=== PATIENT | female | born 1945 | race Caucasian/White ===

== ENCOUNTER → 2016-07-30 | Outpatient (CLI) | payer MEDICARE ==
--- NOTE | 2016-07-31 10:31 | MM ---
Reason for exam: screening (asymptomatic). Last mammogram was performed 1 year and 2 months ago. History: Patient is postmenopausal and has history of endometrial cancer at age 48. Benign stereotactic core biopsy of the right breast, October 23, 1999. Took estrogen. Took progesterone. Physical Findings: A clinical breast exam by your physician is recommended on an annual basis and results should be correlated with mammographic findings. MG Screening Mammo w CAD Bilateral CC and MLO view(s) were taken. Prior study comparison: May 31, 2015, bilateral MG screening mammo w CAD. April 25, 2014, bilateral MG screening mammo w CAD. The breast tissue is almost entirely fat. Previous mammotome biopsy in the right breast. Asymmetric breast tissue in the left breast. This finding is more defined when compared with previous exams. ASSESSMENT: Incomplete: need additional imaging evaluation, BI-RAD 0 RECOMMENDATION: Special view mammogram of the left breast. If lesion persists on supplemental views, image directed ultrasound is recommended. [facility] will attempt to contact patient to return for supplemental views and ultrasound if indicated.
== END | disposition home or self-care (01) ==
LOC: RADMAMWWP 10:05
PROVIDERS: ATTEND Family Medicine
DX: Z12.31 Encounter for screening mammogram for malignant neoplasm of breast (principal)

== ENCOUNTER → 2016-08-04 | Outpatient (CLI) | payer MEDICARE ==
--- NOTE | 2016-08-05 07:08 | MM ---
Reason for exam: additional evaluation requested from abnormal screening. Last mammogram was performed less than 1 month ago. History: Patient is postmenopausal and has history of endometrial cancer at age 48. Benign stereotactic core biopsy of the right breast, October 23, 1999. Took estrogen. Took progesterone. Physical Findings: Nurse did not find any significant physical abnormalities on exam. MG 3D Work Up W/Cad LT ML, spot compression MLO, and spot compression CC view(s) were taken of the left breast. Prior study comparison: July 30, 2016, bilateral MG screening mammo w CAD. May 31, 2015, bilateral MG screening mammo w CAD. April 25, 2014, bilateral MG screening mammo w CAD. November 17, 2011, bilateral digital screening mammo w/CAD. There are scattered fibroglandular densities. Subareolar density shows no underlying mass or architectural distortion. Appearance on tomosynthesis is stable from priors. These results were verbally communicated with the patient and result sheet given to the patient on 08/04/16. ASSESSMENT: Negative, BI-RAD 1 RECOMMENDATION: Return to routine screening mammogram schedule for both breasts.
== END | disposition home or self-care (01) ==
LOC: RADMAMWWP 14:52
PROVIDERS: ATTEND Family Medicine
DX: R92.8 Other abnormal and inconclusive findings on diagnostic imaging of breast (principal)
CPT/HCPCS: G0206; G0279

== ENCOUNTER → 2017-09-14 | Outpatient (CLI) | payer MEDICARE ==
--- NOTE | 2017-09-14 15:25 | BD ---
EXAMINATION TYPE: MG DEXA axial skeleton. DATE OF EXAM: 09/14/2017 COMPARISON: DEXA bone scan April 17, 2015 CLINICAL HISTORY: post menopausal Height: 09/14 05/18 Weight: 137 FRAX RISK QUESTIONS: Alcohol (3 or more units per day): y Family History (Parent hip fracture): y Glucocorticoids (More than 3mos): y (Ex: prednisone, prednisolone, methylprednisolone, dexamethasone, and hydrocortisone). History of Fracture in Adulthood: y Secondary Osteoporosis: 1. Type 1 Diabetes: n 2. Hyperthyroidism: n 3. Menopause before 45: n 4. Malnutrition: n 5. Chronic liver disease: n Rheumatoid Arthritis: n Current Tobacco Use: n RISK FACTORS HISTORY OF: Diet low in dairy products/other sources of calcium: y Postmenopausal woman: y MEDICATIONS: Additional Medications: vitamin D. Stomach issues Additional History: uterine cancer EXAM MEASUREMENTS: Bone mineral densitometry was performed using the [employer]. Bone mineral density as measured about the Lumbar spine is: ----- L1-L4(G/cm2): 1.099 T Score Values are as follows: ----- L2: -1.2 ----- L3: 0.0 ----- L4: 0.6 ----- L1-L4: -0.7 Bone mineral density has: Increased 0.6since study of: 04/17/2015 Bone mineral density about the R hip (g/cm2): 0.768 Bone mineral density about the L hip (g/cm2): 0.692 T Score values are as follows: -----R Neck: -1.9 -----L Neck: -2.5 -----R Total: -1.7 -----L Total: -1.6 Bone mineral density has: Decreased -2.6 since of: 04/17/2015 IMPRESSION: Osteopenia (T Score between -2.5 and -1) persists in both hips. There remains slightly increased risk of fracture and the patient may be considered for treatment. Re-Screen 2-5 years. NOTE: T-SCORE=SD OF THE YOUNG ADULT MEAN.
--- NOTE | 2017-09-15 10:34 | MM ---
Reason for exam: screening (asymptomatic). Last mammogram was performed 1 year and 1 month ago. History: Patient is postmenopausal and has history of endometrial cancer at age 48. Benign stereotactic core biopsy of the right breast, October 23, 1999. Took estrogen. Took progesterone. Physical Findings: A clinical breast exam by your physician is recommended on an annual basis and results should be correlated with mammographic findings. MG Screening Mammo w CAD Bilateral CC and MLO view(s) were taken. Prior study comparison: August 04, 2016, left breast MG 3d work up w/cad LT. July 30, 2016, bilateral MG screening mammo w CAD. There are scattered fibroglandular densities. Stable benign calcifications in the right breast. Previous mammotome biopsy in the right breast. Focal asymmetry upper outer left breast stable since 2016. No significant changes when compared with prior studies. ASSESSMENT: Benign, BI-RAD 2 RECOMMENDATION: Routine screening mammogram of both breasts in 1 year.
== END | disposition home or self-care (01) ==
LOC: RADMAMWWP 13:52
PROVIDERS: ATTEND Family Medicine
DX: Z12.31 Encounter for screening mammogram for malignant neoplasm of breast (principal); M85.852 Other specified disorders of bone density and structure, left thigh; M85.851 Other specified disorders of bone density and structure, right thigh; Z78.0 Asymptomatic menopausal state
CPT/HCPCS: 77067; 77080

== ENCOUNTER → 2018-11-30 | Outpatient (CLI) | payer MEDICARE ==
--- NOTE | 2018-12-01 11:27 | MM ---
Reason for exam: screening (asymptomatic). Last mammogram was performed 1 year and 3 months ago. History: Patient is postmenopausal and has history of endometrial cancer at age 48. Benign stereotactic core biopsy of the right breast, October 23, 1999. Took estrogen. Took progesterone. Physical Findings: A clinical breast exam by your physician is recommended on an annual basis and results should be correlated with mammographic findings. MG Screening Mammo w CAD Bilateral CC and MLO view(s) were taken. Prior study comparison: September 14, 2017, bilateral MG screening mammo w CAD. August 04, 2016, left breast MG 3d work up w/cad LT. The breast tissue is heterogeneously dense. This may lower the sensitivity of mammography. There are benign appearing round calcifications bilaterally. Previous mammotome biopsy in the right breast. There is no discrete abnormality. ASSESSMENT: Benign, BI-RAD 2 RECOMMENDATION: Routine screening mammogram of both breasts in 1 year.
== END | disposition home or self-care (01) ==
LOC: RADMAMWWP 11:01
PROVIDERS: ATTEND Family Medicine
DX: Z12.31 Encounter for screening mammogram for malignant neoplasm of breast (principal)
CPT/HCPCS: 77067

== ENCOUNTER → 2020-04-16 | Outpatient (CLI) | payer MEDICARE ==
--- NOTE | 2020-04-16 14:55 | BD ---
EXAMINATION TYPE: Axial Bone Density DATE OF EXAM: 04/16/2020 COMPARISON: 09.14.2017 CLINICAL HISTORY: 74 YR OLD FEMALE.....ICD-10 CODE: Z78.0 POST ASHWIN Height: 60.9 Weight: 125 FRAX RISK QUESTIONS: History of Fracture in Adulthood: YES Current Tobacco Use: YES RISK FACTORS HISTORY OF: HX OF TAILBONE FX AN ADULT Postmenopausal woman: YES, AT AGE 47 Take estrogen and/or progesterone medications: YES, FOR ABOUT 10 YRS IN THE PAST Hyperparathyroidism: NO Adrenal Insufficiency: NO MEDICATIONS: Additional Medications: LEXAPRO AND ATIVAN, CHOLESTEROL MEDS PRESCRIBED, VIT D3, VIT D2 IN THE PAST I NFUSION Additional History: ANXIETY, CHOLESTEROL EXAM MEASUREMENTS: Bone mineral densitometry was performed using the [employer] System. Bone mineral density as measured about the Lumbar spine is: ----- L1-L4(G/cm2): 1.195 T Score Values are as follows: ----- L1: -2.2 ----- L2: -0.6 ----- L3: 0.8 ----- L4: 3.1 ----- L1-L4: 0.1 Bone mineral density has: Increased 11.8% since study of: 09.14.2017 Bone mineral density about the R hip (g/cm2): 0.776 Bone mineral density about the L hip (g/cm2): 0.760 T Score values are as follows: -----R Neck: -2.0 -----L Neck: -2.7 -----R Total: -1.8 -----L Total: -2.0 Bone mineral density has: Decreased -4.0% since study of: 09.14.2017 FRAX%S: THERE IS 29.3% CHANCE FOR A MAJOR OSTEOPOROTIC FX AND A 14.2% FOR HIP.....PROBABILITY FOR F X IN 10 YRS TIME IMPRESSION: Osteopenia (T Score between -2.5 and -1). There is slightly increased risk of fracture and the patient may be considered for treatment. Re-Screen 2-5 years. NOTE: T-SCORE=SD OF THE YOUNG ADULT MEAN.
--- NOTE | 2020-04-17 13:38 | MM ---
Reason for exam: screening (asymptomatic). Last mammogram was performed 1 year and 4 months ago. History: Patient is postmenopausal and has history of endometrial cancer at age 48. Benign stereotactic core biopsy of the right breast, October 23, 1999. Took estrogen. Took progesterone. Physical Findings: A clinical breast exam by your physician is recommended on an annual basis and results should be correlated with mammographic findings. MG 3D Screening Mammo W/Cad Bilateral CC and MLO view(s) were taken. Prior study comparison: November 30, 2018, bilateral MG screening mammo w CAD. September 14, 2017, bilateral MG screening mammo w CAD. There are scattered fibroglandular densities. Previous mammotome biopsy in the right breast. Stable areas of asymmetric densities. No significant changes when compared with prior studies. ASSESSMENT: Negative, BI-RAD 1 RECOMMENDATION: Routine screening mammogram of both breasts in 1 year.
== END | disposition home or self-care (01) ==
LOC: RADMAMWWP 13:42
PROVIDERS: ATTEND Family Medicine
DX: Z12.31 Encounter for screening mammogram for malignant neoplasm of breast (principal); M85.80 Other specified disorders of bone density and structure, unspecified site; Z78.0 Asymptomatic menopausal state
CPT/HCPCS: 77063; 77067; 77080

== ENCOUNTER → 2020-04-22 | Outpatient (CLI) | payer MEDICARE ==
[2020-04-22 13:12] LABS: African American GFR (CKD) >90 (>60 ml/min/1.73 sqM); Blood Urea Nitrogen 9 mg/dL (7-17); Non-African American GFR(CKD) >90 (>60 ml/min/1.73 sqM)
--- NOTE | 2020-04-22 14:47 | CT ---
EXAMINATION TYPE: CT angio neck DATE OF EXAM: 04/22/2020 COMPARISON: Correlation CT neck 02/28/2010 HISTORY: 74-year-old female I67.89, Cerebral vascular disease TECHNIQUE: Contiguous axial scanning of the neck performed with IV Contrast, patient injected with 65 mL of Isovue 370. Coronal/sagittal MIP reconstructions performed. 3-D reconstructions generated on a dedicated independent workstation. CT DLP: 286 mGycm Automated exposure control for dose reduction was used. FINDINGS: Moderate centrilobular emphysema in the visualized upper lungs. Very bulky and heterogeneous thyroid gland. Calcified nodule measures 1.4 cm. Additional hypodense no dules are present within it to be better evaluated with thyroid ultrasound. Moderate atherosclerotic arch calcifications. Conventional arch vessel branching anatomy. Mild atherosclerotic narrowing at the origin of the left vertebral artery. Both vertebral arteries ar e codominant and patent throughout the course. 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 Right common carotid artery is patent. Moderate atherosclerotic calcification and prominent plaque at the proximal right ICA contributing to borderline moderate, approximately 50% proximal ICA stenosis down to 2.5 mm. The remainder of the right ICA shows a couple hairpin turns but remains patent. The left common carotid artery is patent. Mild atherosclerotic change at the left bifurcation without significant ICA stenosis. Calcifications within the bilateral palatine tonsils suggests sequela of prior infection. Mild mucosa l thickening left maxillary sinus. IMPRESSION: 1. ATHEROSCLEROTIC CHANGE WITH PROMINENT SOFT PLAQUE AT THE RIGHT CAROTID BIFURCATION RESULTING IN A BORDERLINE MODERATE, 50% PROXIMAL ICA STENOSIS WITH NARROWING DOWN TO 2.5 MM. 2. A COUPLE HAIRPIN TURNS ARE NOTED IN THE REMAINDER OF THE PATENT RIGHT ICA. 3. BULKY HETEROGENEOUS THYROID GLAND WITH MULTIPLE UNDERLYING NODULES THAT CAN BE FURTHER EVALUATED W ITH THYROID ULTRASOUND. 4. COPD WITH MODERATE EMPHYSEMA.
== END | disposition home or self-care (01) ==
LOC: RADCTMAIN 12:30
PROVIDERS: ATTEND Nurse Practitioner Family
DX: I65.21 Occlusion and stenosis of right carotid artery (principal); Z88.2 Allergy status to sulfonamides
CPT/HCPCS: 82565; 84520; 70498; 36415; Q9967

== ENCOUNTER → 2020-07-23 | Outpatient (CLI) | payer MEDICARE ==
--- NOTE | 2020-07-23 15:02 | US ---
EXAMINATION TYPE: US thyroid st tissue head/neck DATE OF EXAM: 07/23/2020 COMPARISON: CT neck February 28, 2010 and CTA April 22, 2020 CLINICAL HISTORY: E04.1 thyroid Nodule. thyroid nodule GLAND SIZE: Right Lobe: 5.0 x 1.8 x 1.8 cm Overall Parenchyma: homogenous Left Lobe: 4.0 x 1.4 x 1.8 cm Overall Parenchyma: homogeneous Isthmus Thickness: cm NODULES RIGHT: # of nodules measured on right: 2 1. 1.5 X .8 x 1.1 cm, mid , mixed cystic and solid, hypoechoic nodule, which is wider than tall, wi th smooth margins, without echogenic foci. Prior size No prior 2. 1.5 X 1.2 x 1.2 cm, lower , mixed cystic and solid, hypoechoic nodule, which is wider than tall, with smooth margins, without echogenic foci. Prior size No Prior LEFT: # of nodules measured on left: 2 1. 1.5 X .9 x 1.1 cm, upper , cystic or almost completely cystic, hyperechoic nodule, which is wide r than tall, with smooth margins, without echogenic foci. Prior size No prior 2. 1.9 X 1.4 x 1.5 cm, lower , mixed cystic and solid, hyperechoic nodule, which is wider than lashaun l, with smooth margins, without echogenic foci. Prior size No prior ISTHMUS: # of nodules measured in the isthmus: .3 Bilateral neck scanned, no evidence of lymphadenopathy. Persistent homogeneous normal-sized thyroid with bilateral thyroid nodules. Most concerning right-nicole ed nodule is the 1.5 cm solid and cystic posterior mid to lower pole nodule TR 3 lesion. The 1.9 cm solid and cystic left thyroid nodule is TR 3 lesion. The rim calcified 1.5 cm lesion is also TR 3 les ion corresponds to a densely calcified hypoechoic CT lesion unchanged in appearance from 2010 study. IMPRESSION: Normal-sized thyroid with bilateral nodules. Follow-up ultrasound in one year's time. 2017 ACR TI-RADS LEVEL: TR-RADS 3 - Mildly Suspicious: Follow if > 1.5 cm, FNA if > 2.5 cm. *Highest TI-RADS level nodule reported
== END ==
LOC: RADUSWWP 14:16
PROVIDERS: ATTEND Otolaryngology
DX: E04.2 Nontoxic multinodular goiter (principal)
CPT/HCPCS: 76536

== ENCOUNTER → 2021-02-28 | Outpatient (CLI) | payer MEDICARE ==
--- NOTE | 2021-02-28 17:39 | US ---
EXAMINATION TYPE: US thyroid st tissue head/neck DATE OF EXAM: 02/28/2021 COMPARISON: Ultrasound thyroid 07/23/2020 CLINICAL HISTORY: E04.1 thyroid nodule. GLAND SIZE: Right Lobe: 3.8 x 1.9 x 1.7 cm Overall Parenchyma: Satisfactory Left Lobe: 4.8 x 1.6 x 1.8 cm Overall Parenchyma: Satisfactory Isthmus Thickness: 0.25 cm NODULES RIGHT: # of nodules measured on right: 1. 1.3 x 1.0 x 0.9 cm, mid, mixed cystic and solid, hypoechoic nodule, which is wider than tall, w ith irregular margins, without echogenic foci. Prior size: 1.5 x 0.8 x 1.1 cm 2. 1.2 x 1.2 x 1.0 cm, mid, solid or almost completely solid, hypoechoic nodule, which is taller th an wide, with irregular margins, without echogenic foci. Prior size: 1.5 x 1.2 x 1.2 cm LEFT: # of nodules measured on left: 1. 1.4 X 1.3 x 1.3 cm, upper, calcified wall, anechoic nodule, which is wider than tall, with blue h margins, without echogenic foci. Prior size: 1.5 x 0.9 x 1.1 cm 2. 1.8 X 1.5 x 1.6 cm, lower, mixed cystic and solid, anechoic nodule, which is wider than tall, wi th smooth margins, without echogenic foci. Prior size: 1.9 x 1.4 x 1.5 cm ISTHMUS: # of nodules measured in the isthmus: 0 Bilateral neck scanned, no evidence of lymphadenopathy. IMPRESSION: Overall unchanged size of multiple thyroid nodules. 2017 ACR TI-RADS LEVEL: 3: - Mildly suspicious: Follow if >1.5 cm, FNA if > 2.5 cm. *Highest TI-RADS level nodule reported
== END | disposition home or self-care (01) ==
LOC: RADUSWWP 16:19
PROVIDERS: ATTEND Otolaryngology
DX: E04.2 Nontoxic multinodular goiter (principal)
CPT/HCPCS: 76536

== ENCOUNTER → 2021-06-17 | Outpatient (CLI) | payer MEDICARE ==
--- NOTE | 2021-06-18 12:11 | MM ---
Reason for exam: screening (asymptomatic). Last mammogram was performed 1 year and 2 months ago. History: Patient is postmenopausal and has history of endometrial cancer at age 48. Benign stereotactic core biopsy of the right breast, October 23, 1999. Took estrogen. Took progesterone. Physical Findings: A clinical breast exam by your physician is recommended on an annual basis and results should be correlated with mammographic findings. MG 3D Screening Mammo W/Cad Bilateral CC and MLO view(s) were taken. Prior study comparison: April 16, 2020, bilateral MG 3d screening mammo w/cad. November 30, 2018, bilateral MG screening mammo w CAD. There are scattered fibroglandular densities. Previous mammotome biopsy in the right breast. No significant changes when compared with prior studies. ASSESSMENT: Negative, BI-RAD 1 RECOMMENDATION: Routine screening mammogram of both breasts in 1 year.
== END | disposition home or self-care (01) ==
LOC: RADMAMWWP 12:25
PROVIDERS: ATTEND Family Medicine
DX: Z12.31 Encounter for screening mammogram for malignant neoplasm of breast (principal); Z78.0 Asymptomatic menopausal state; Z85.42 Personal history of malignant neoplasm of other parts of uterus
CPT/HCPCS: 77063; 77067

== ENCOUNTER → 2021-09-17 | Outpatient (CLI) | payer MEDICARE ==
--- NOTE | 2021-09-18 06:40 | US ---
EXAMINATION TYPE: US thyroid st tissue head/neck DATE OF EXAM: 09/17/2021 COMPARISON: Thyroid ultrasound February 28, 2021 CLINICAL HISTORY: E04.1 nontoxic thyroid nodule. GLAND SIZE: Right Lobe: 4.5 x 2.2 x 1.7 cm Overall Parenchyma: heterogenous Left Lobe: 4.2 x 2.1 x 1.9 cm Overall Parenchyma: heterogeneous Isthmus Thickness: 0.2 cm NODULES RIGHT: # of nodules measured on right: 2 1. 1.4 X 0.8 x 1.2 cm, mid, mixed cystic and solid, anechoic nodule, which is wider than tall, with smooth margins, with echogenic foci. Prior size:1.5 x 0.8 x 1.1cm 2. 1.4 X 1.2 x 1.3 cm, lower, mixed cystic and solid, anechoic nodule, which is taller than wide, w ith lobulated or irregular margins, with echogenic foci. Prior size:1.2 x 1.2 x 1.0 cm LEFT: # of nodules measured on left: 1. 1.5 X 1.2 x 1.1 cm, upper , anechoic nodule, which is wider than tall, with smooth margins, with out echogenic foci. Prior size: 1.4 X 1.3 x 1.3 cm 2. 2.0 X 1.6 x 1.6 cm, lower, mixed cystic and solid, hypoechoic nodule, which is wider than tall, with smooth margins, without echogenic foci. Prior size: 1.8 X 1.5 x 1.6 cm ISTHMUS: # of nodules measured in the isthmus: 0 Bilateral neck scanned, no evidence of lymphadenopathy. Heterogeneous thyroid gland with several bilateral nodules redemonstrated. No significant change from most recent ultrasound. IMPRESSION: As above
== END | disposition home or self-care (01) ==
LOC: RADUSWWP 16:47
PROVIDERS: ATTEND Otolaryngology
DX: E04.2 Nontoxic multinodular goiter (principal)
CPT/HCPCS: 76536

== ENCOUNTER 2021-10-08 15:49 | Emergency (ER) | payer MEDICARE ==
[2021-10-08 16:43] VITALS: TEMP 98.2
--- NOTE | 2021-10-08 17:34 | XR ---
EXAMINATION TYPE: XR chest 2V DATE OF EXAM: 10/08/2021 COMPARISON: NONE HISTORY: Short of breath TECHNIQUE: 2 views FINDINGS: Heart is normal. Lungs are clear of infiltrate. No heart failure. No hilar mass bony thorax is intact. Thoracic aorta is atheromatous. There is mild flattening of the diaphragm. IMPRESSION: No active cardiopulmonary disease. Normal heart. This probably COPD.
[2021-10-08] MEDS ORDERED: predniSONE 20 MG TAB PO STA (18:44)
--- NOTE | 2021-10-08 18:45 | ED ---
URI HPI - General Chief Complaint: Upper Respiratory Infection Stated Complaint: Covid+ SOB Time Seen by Provider: 10/08/21 18:13 Source: patient, RN notes reviewed Mode of arrival: ambulatory Limitations: no limitations - History of Present Illness Initial Comments: Patient complaining of a dry cough, nasal congestion, body aches, diminished appetite for 6 days. Patient tested positive for COVID-19 at her doctor's office and presents here for the monoclonal antibody. Patient states she did get the immunization. She is a cigarette smoker. no changes in vision or hearing, no sore throat or difficulty with speech, no neck pain, no chest pain or shortness of breath, no abdominal pain, no nausea or vomiting, no changes in urination or bowel movements, no numbness or tingling, no extremity pain, no skin rashes or lesions. MD Complaint: fever, cough, rhinorrhea, nasal congestion - Related Data Previous Rx's Medication Instructions Recorded predniSONE [Deltasone] 40 mg PO DIRECTED #10 tab 10/08/21 Allergies Allergy/AdvReac Type Severity Reaction Status Date / Time adhesive tape Allergy Unknown Verified 10/08/21 16:44 Review of Systems ROS Statement: Those systems with pertinent positive or pertinent negative responses have been documented in the HPI. ROS Other: All systems not noted in ROS Statement are negative. Past Medical History Additional Past Medical History / Comment(s): lung scan, hypercholestremia. History of Any Multi-Drug Resistant Organisms: None Reported Past Surgical History: No Surgical Hx Reported, Hysterectomy Past Psychological History: Anxiety, Depression Smoking Status: Current every day smoker Past Alcohol Use History: Occasional Past Drug Use History: None Reported General Exam - General Exam Comments Initial Comments: Vital signs stable, patient afebrile. Patient appears minimally ill but not systemically toxic. Adequate peripheral perfusion. Capillary refill less than 2 seconds. Good skin color. No mottling. Cranial nerves II through XII grossly intact. Limitations: no limitations General appearance: alert, in no apparent distress Head exam: Present: atraumatic, normocephalic, normal inspection Eye exam: Present: normal appearance, PERRL, EOMI. Absent: scleral icterus, conjunctival injection, periorbital swelling ENT exam: Present: normal exam, mucous membranes moist, normal external ear exam Neck exam: Present: normal inspection, full ROM. Absent: tenderness, meningismus, lymphadenopathy Respiratory exam: Present: normal lung sounds bilaterally, rales (Patient has scattered, coarse sounding/dry rales, no increased work of breathing. No assessed renal muscle use. No wheezing). Absent: respiratory distress, wheezes, rhonchi, stridor Cardiovascular Exam: Present: regular rate, normal rhythm, normal heart sounds. Absent: systolic murmur, diastolic murmur, rubs, gallop, clicks GI/Abdominal exam: Present: soft, normal bowel sounds. Absent: distended, tenderness, guarding, rebound, rigid Extremities exam: Present: normal inspection, full ROM, normal capillary refill. Absent: tenderness, pedal edema, joint swelling, calf tenderness Back exam: Present: normal inspection Neurological exam: Present: alert, oriented X3, CN II-XII intact Psychiatric exam: Present: normal affect, normal mood Skin exam: Present: warm, dry, intact, normal color. Absent: rash Course Vital Signs 10/08/21 16:39 Temperature 98.2 F Pulse Rate 87 Respiratory 20 Rate Blood Pressure 121/76 O2 Sat by Pulse 96 Oximetry Medical Decision Making - Medical Decision Making SELF QUARANTINE DISCHARGE: As you are at risk for symptoms due to coronavirus, please stay home and stay away from others as much as possible. Please maintain social distance of 6 feet if possible. You should not return to work until at least 3 days (72 hours) have passed since recovery of symptoms. This defined as resolution of fever without the use of fever reducing medicines and improvement in respiratory symptoms (e.g,, cough, shortness of breath) Isolation can end at least 5 days after symptom onset and after fever ends for 24 hours (without the use of fever-reducing medication) and symptoms are improving, if these people can continue to properly wear a well-fitted mask around others for 5 more days after the 5-day isolation period. If you're still having symptoms at the end of 5 day period, isolate for an additional 5 days. More information about what to do if you are sick can be found on the CDC website at https://www.cdc.gov/coronavirus/2019-ncov/zm-iqu-hxk-sick/edmum-mbsj-nvpl.html Expect the symptoms to last for 7-14 days from onset. Use acetaminophen (Tylenol) as needed for discomfort. You can take a maximum of 1 gram every 6 hours for discomfort, with your total dose in 24 hours not exceeding 4 grams. Be sure to maintain hydration. Drink continuous water and/or items high in vitamin C, such as orange juice and/or lemonade. Unless you have high blood pressure, you may consider Sudafed (which is [id number]) for nasal congestion. I would suggest that a short acting Sudafed rather than the 24 hour Sudafed. For a cough you may take Mucinex or Robitussin. Also consider the use of Vicks Vapor Rub or your chest when you sleep. Use a humidifier that is cleaned frequently, in the bedroom at night. For Nausea /Vomiting/Diarrhea associated with your Illness: o Small frequent sips of room temperature liquids. o Diet: [employer] - If you are still experiencing discomfort and/or nausea please slowly advancing your diet using the BRAT Diet = bananas, rice, apples/apple sauce, toast. o With diarrhea avoid any dairy for 48 hours after symptoms resolved. o Continue with activity as tolerated. If your symptoms do get worse and you believe that the upper respiratory infection has developed into something else, such as pneumonia or severe dehydration, please return to the emergency department or follow-up with your primary care. But expect to be symptomatic for the days as indicated above Work on smoking cessation. Patient presents after tested positive for COVID-19 at her physician's office. Patient in no significant distress. Appears to be mildly ill. Dry cough. SpO2 on room air is 96%. No respiratory distress. Discussed monoclonal antibody with the patient. She is electing to get this. We'll cover with corticosteroids as the patient does have some harsh breath sounds. X-ray otherwise clear, appears to be consistent with COPD. Patient was counseled on smoking cessation. Patient was told to return to the ER for any signs or symptoms worsen. Told to return immediately if any other problems arise. All questions answered. Treatment plan discussed. Patient in agreement Every effort has been made to ensure accuracy of this dictation. However, due to the limitations of electronic medical records and dictation devices, errors in charting still occur. [employer] Developer Dr. Leahy - Radiology Data Radiology results: report reviewed, image reviewed Disposition Clinical Impression: COVID-19 Disposition: HOME SELF-CARE Condition: Stable Instructions (If sedation given, give patient instructions): COVID-19 (Coronavirus Disease 2019) (ED) Additional Instructions: SELF QUARANTINE DISCHARGE: As you are at risk for symptoms due to coronavirus, please stay home and stay away from others as much as possible. Please maintain social distance of 6 feet if possible. You should not return to work until at least 3 days (72 hours) have passed since recovery of symptoms. This defined as resolution of fever without the use of fever reducing medicines and improvement in respiratory symptoms (e.g,, cough, shortness of breath) Isolation can end at least 5 days after symptom onset and after fever ends for 24 hours (without the use of fever-reducing medication) and symptoms are improving, if these people can continue to properly wear a well-fitted mask around others for 5 more days after the 5-day isolation period. If you're still having symptoms at the end of 5 day period, isolate for an additional 5 days. More information about what to do if you are sick can be found on the CDC website at https://www. cdc.gov/coronavirus/2019-ncov/ad-szk-scs-sick/egkfh-eehy-gejm.html Expect the symptoms to last for 7-14 days from onset. Use acetaminophen (Tylenol) as needed for discomfort. You can take a maximum of 1 gram every 6 hours for discomfort, with your total dose in 24 hours not exceeding 4 grams. Be sure to maintain hydration. Drink continuous water and/or items high in vitamin C, such as orange juice and/or lemonade. Unless you have high blood pressure, you may consider Sudafed (which is [id number]) for nasal congestion. I would suggest that a short acting Sudafed rather than the 24 hour Sudafed. For a cough you may take Mucinex or Robitussin. Also consider the use of Vicks Vapor Rub or your chest when you sleep. Use a humidifier that is cleaned frequently, in the bedroom at night. For Nausea /Vomiting/Diarrhea associated with your Illness: o Small frequent sips of room temperature liquids. o Diet: [employer] - If you are still experiencing discomfort and/or nausea please slowly advancing your diet using the BRAT Diet = bananas, rice, apples/apple sauce, toast. o With diarrhea avoid any dairy for 48 hours after symptoms resolved. o Continue with activity as tolerated. If your symptoms do get worse and you believe that the upper respiratory infection has developed into something else, such as pneumonia or severe dehydration, please return to the emergency department or follow-up with your primary care. But expect to be symptomatic for the days as indicated above Work on smoking cessation Is patient prescribed a controlled substance at d/c from ED?: No Referrals: Abhinav Powers MD [Primary Care Provider] - 1-2 days
[2021-10-08] MEDS ORDERED: BEBTELOVIMAB (EUA) 175 MG/2 ML VIAL IV ONE (19:00)
[2021-10-08 20:11] VITALS: RESP 16
[2021-10-08 21:33] VITALS: BP 121/71; PULSE 74
== END 2021-10-08 21:33 | disposition home or self-care (01) ==
LOC: EC 15:49
DX: U07.1 COVID-19 (principal); F17.210 Nicotine dependence, cigarettes, uncomplicated
CPT/HCPCS: 71046; 99283; J7512; Q0222

== ENCOUNTER → 2022-03-17 | Outpatient (CLI) | payer MEDICARE ==
--- NOTE | 2022-03-18 11:18 | US ---
EXAMINATION TYPE: US thyroid st tissue head/neck DATE OF EXAM: 03/17/2022 COMPARISON: US September 17, 2021 CLINICAL HISTORY: E04.1 NONTOXIC SINGLE THYROID NODULE. Nodules, Hx thyroid biopsy. GLAND SIZE: Right Lobe: 4.9 x 2.2 x 2.0 cm Overall Parenchyma: heterogenous Left Lobe: 4.1 x 1.7 x 2.1 cm Overall Parenchyma: heterogeneous Isthmus Thickness: 0.26 cm NODULES RIGHT: # of nodules measured on right: 2 1. 1.2 X 1.1 x 0.8 cm, mid mixed cystic and solid, hypoechoic nodule, which is wider than tall, wi th smooth margins, with echogenic foci. Prior size: 1.4 x 0.8 x 1.2 cm 2. 1.6 X 1.4 x 1.4 cm, lower mixed cystic and solid, hypoechoic nodule, which is as wide as it is t all, with smooth margins, with echogenic foci. Prior size: 1.4 x 1.2 x 1.3 cm 3. 1.1 X 1.5 x 1.2 cm, lower, solid or almost completely solid, hyperechoic nodule, which is wider than tall, with smooth margins, without echogenic foci. Prior size: Does not correlate LEFT: # of nodules measured on left: 2 1. 1.6 X 1.3 x 1.2 cm, upper calcified, solid or almost completely solid nodule, which is wider becka n tall, with smooth margins, without echogenic foci. Prior size: 1.5 x 1.2 x 1.1 cm 2. 2.4 X 1.9 x 1.6 cm, lower, mixed cystic and solid, nodule, which is wider than tall, with smoo th margins, without echogenic foci. Prior size: 2.0 x 1.6 x 1.6 cm ISTHMUS: # of nodules measured in the isthmus: 0 Bilateral neck scanned, no evidence of lymphadenopathy. Heterogeneous multinodular normal-sized thyroid redemonstrated as detailed above. IMPRESSION: As above. Findings consistent with multinodular goiter redemonstrated.
== END | disposition home or self-care (01) ==
LOC: RADUSWWP 12:34
PROVIDERS: ATTEND Otolaryngology
DX: E04.1 Nontoxic single thyroid nodule (principal)
CPT/HCPCS: 76536

== ENCOUNTER → 2022-06-18 | Outpatient (CLI) | payer MEDICARE ==
--- NOTE | 2022-06-19 08:27 | MM ---
Reason for Exam: Screening (asymptomatic). Last screening mammogram was performed 12 month(s) ago. Patient History: Menarche at age 13. First Full-Term at age 21. Left ovary removed at age 48. Right ovary removed at age 48. Hysterectomy at age 48. Postmenopausal. Estrogen, ending at age 49. Progesterone, ending at age 49. 10/23/1999, Benign Stereotactic Core Biopsy on the right side. Risk Values: Nadege 5 year model risk: 1.9%. NCI Lifetime model risk: 3.8%. Prior Study Comparison: 11/30/2018 Bilateral Screening Mammogram, [facility]. 04/16/2020 Bilateral Screening Mammogram, [facility]. 06/17/2021 Bilateral Screening Mammogram, [facility]. Tissue Density: There are scattered fibroglandular densities. Findings: Analyzed By CAD. There is no suspicious group of microcalcifications or new suspicious mass in either breast. Overall Assessment: Negative, BI-RAD 1 Management: Screening Mammogram of both breasts in 1 year. A clinical breast exam by your physician is recommended on an annual basis and results should be correlated with mammographic findings. Electronically signed and approved by: Jayjay Breaux M.D. Radiologis
== END | disposition home or self-care (01) ==
LOC: RADMAMWWP 12:02
PROVIDERS: ATTEND Family Medicine
DX: Z12.31 Encounter for screening mammogram for malignant neoplasm of breast (principal); Z78.0 Asymptomatic menopausal state; Z98.890 Other specified postprocedural states
CPT/HCPCS: 77063; 77067

== ENCOUNTER → 2022-09-08 | Outpatient (CLI) | payer MEDICARE ==
--- NOTE | 2022-09-08 12:53 | US ---
EXAMINATION TYPE: US thyroid st tissue head/neck DATE OF EXAM: 09/08/2022 COMPARISON: CLINICAL INDICATION: Female, 77 years old with history of E04.1 NONTOXIC SINGLE THYROID NODULE; Follo w up nodules. GLAND SIZE: Right Lobe: 4.1 x 1.6 x 2.0 cm Overall Parenchyma: heterogenous Left Lobe: 4.4 x 1.8 x 2.0 cm Overall Parenchyma: heterogeneous Isthmus Thickness: 0.3 cm NODULES RIGHT: # of nodules measured on right: 3 1. 0.9 X 0.8 x 0.7 cm, lower mid, mixed cystic and solid, hypoechoic nodule, which is wider than ta ll, with smooth margins, with echogenic foci. Prior size: 1.2 x 1.1 x 0.8 cm 2. 1.5 X 1.4 x 1.5 cm, lower mid, mixed cystic and solid, hypoechoic nodule, which is taller than w selam, with smooth margins, with echogenic foci. Prior size: 1.6 x 1.4 x 1.4 cm 3. 0.8 X 1.2 x 1.1 cm, lower mid, solid or almost completely solid, isoechoic nodule, which is wide r than tall, with smooth margins, without echogenic foci. Prior size: 1.1 x 1.5 x 1.2 cm LEFT: # of nodules measured on left: 2 1. 1.5 x 1.2 cm, upper mid, Calcified solid or almost completely solid, hyperechoic nodule, which is wider than tall, with smooth margins, with echogenic foci. Prior size: 1.6 x 1.3 x 1.2 cm 2. 2.0 X 1.9 x 1.7 cm, lower mid, mixed cystic and solid, hypoechoic nodule, which is wider than t all, with smooth margins, without echogenic foci. Prior size: 2.4 x 1.9 x 1.6 cm ISTHMUS: # of nodules measured in the isthmus: 0 Bilateral neck scanned, no evidence of lymphadenopathy. IMPRESSION: Essentially stable nonspecific thyroid nodularity.
== END | disposition home or self-care (01) ==
LOC: RADUSWWP 12:11
PROVIDERS: ATTEND Otolaryngology
DX: E04.2 Nontoxic multinodular goiter (principal)
CPT/HCPCS: 76536

== ENCOUNTER 2022-11-18 12:37 | Day surgery (SDC) | payer MEDICARE ==
[2022-11-18] MEDS ORDERED: ALPRAZolam 0.25 MG TAB PO PRN (12:43)
[2022-11-18 13:46] VITALS: TEMP 98.2
[2022-11-18 14:49] VITALS: RESP 18
[2022-11-18 14:50] VITALS: BP 146/80; PULSE 75
--- NOTE | 2022-11-18 15:21 | US ---
ULTRASOUND GUIDED FNA THYROID BIOPSY: CLINICAL HISTORY: Left thyroid nodule FINDINGS: The procedure was explained to the patient. The risks, complications, benefits and alternatives were discussed and any questions were answered. Informed consent was obtained. Patient was placed supin e on the ultrasound table and prepped and draped in the usual sterile fashion. Utilizing a 25 gauge needle, five passes were made into the predominantly cystic left thyroid nodule. There is an additio nal request for a upper pole left thyroid nodule which was heavily calcified in the needle would not traverse into the center of the nodule. Therefore the nodule could not be biopsied percutaneously. Patient was stable throughout the procedure. Pathology is pending. All elements of maximal barrier technique were utilized. IMPRESSION: 1. Successful ultrasound guided FNA thyroid biopsy the predominantly large cystic left thyroid nodul e. Given the nodules almost entirely cystic this may lower diagnostic yield. 2. Heavily calcified additional left thyroid nodule. This cannot be biopsied percutaneously as the ne edle would not pass through the calcified rim.
== END 2022-11-18 14:50 | disposition home or self-care (01) ==
LOC: RADPROMAIN 12:37
PROVIDERS: ATTEND Otolaryngology
DX: E04.2 Nontoxic multinodular goiter (principal); J30.9 Allergic rhinitis, unspecified; Z91.048 Other nonmedicinal substance allergy status; Z88.2 Allergy status to sulfonamides; Z79.1 Long term (current) use of non-steroidal anti-inflammatories (NSAID); Z79.2 Long term (current) use of antibiotics; Z79.899 Other long term (current) drug therapy; Z79.51 Long term (current) use of inhaled steroids
CPT/HCPCS: 10005; 88173; 88305

== ENCOUNTER → 2023-03-15 | Outpatient (CLI) | payer MEDICARE ==
--- NOTE | 2023-03-15 14:37 | US ---
EXAMINATION TYPE: US thyroid st tissue head/neck DATE OF EXAM: 03/15/2023 COMPARISON: NONE CLINICAL INDICATION: Female, 77 years old with history of E04.1 NONTOXIC SINGLE THYROID NODULE; f/u, h/o multiple nodules GLAND SIZE: Right Lobe: 5.2 x 1.9 x 2.7 cm Overall Parenchyma: heterogenous Left Lobe: 4.6 x 2.0 x 1.4 cm Overall Parenchyma: homogeneous Isthmus Thickness: 0.3 cm NODULES RIGHT: # of nodules measured on right: multiple, measured the largest 1 1. 1.3x 1.4 x 1.4cm, mid , mixed cystic and solid, Prior size: 1.4 x 1.5 x 1.4 cm TIRADS Score: 4 TIRADS Category 4: Moderately Suspicious Composition: Solid or almost completely solid (2 points). Echogenicity: Hypoechoic (2 points). Shape: Wider than tall (0 points). Margin: Smooth (0 points). Echogenic foci: None or large comet-tail artifacts (0 points) Recommendation: If >1.5cm: FNA; If >1cm: Follow up at 1,2, 3,5 years LEFT: # of nodules measured on left: multiple, h/o FNA, measured the largest 1. 1.9 X 1.7 x 1.5 cm, lower, mixed cystic and solid, hypoechoic nodule, which is wider than tall, with smooth margins, without echogenic foci. Prior size: 2.0 x 1.7 x 1.9 cm TIRADS Score: 2 TIRADS Category 2: Not Suspicious Composition: Mixed cystic and solid (1 point). Echogenicity: Hyperechoic or isoechoic (1 point). Shape: Wider than tall (0 points). Margin: Smooth (0 points). Echogenic foci: None or large comet-tail artifacts (0 points) Recommendation: No FNA ISTHMUS: # of nodules measured in the isthmus: 0 Bilateral neck scanned, no evidence of lymphadenopathy. IMPRESSION: No suspicious thyroid nodules. Nodules meet criteria for follow-up.
== END | disposition home or self-care (01) ==
LOC: RADUSWWP 13:09
PROVIDERS: ATTEND Otolaryngology
DX: E04.2 Nontoxic multinodular goiter (principal)
CPT/HCPCS: 76536

== ENCOUNTER → 2023-07-12 | Outpatient (CLI) | payer MEDICARE ==
--- NOTE | 2023-07-12 16:58 | BD ---
EXAMINATION TYPE: Axial Bone Density DATE OF EXAM: 07/12/2023 CLINICAL HISTORY: 78 years old Female. ICD-10 CODE: M81.0 AGE-RELATED OSTEOPOROSIS Height: 61 Weight: 119 FRAX RISK QUESTIONS: Alcohol (3 or more units per day): no Family History (Parent hip fracture): no Glucocorticoids (More than 3mos): no (Ex: prednisone, prednisolone, methylprednisolone, dexamethasone, and hydrocortisone). History of Fracture in Adulthood: yes Secondary Osteoporosis: 1. Type 1 Diabetes: no 2. Hyperthyroidism: no 3. Menopause before 45: no 4. Malnutrition: no 5. Chronic liver disease: no Rheumatoid Arthritis: no Current Tobacco Use: yes RISK FACTORS HISTORY OF: Surgery to Spine/Hip(right/left)/Wrist (right/left): no EXAM MEASUREMENTS: Bone mineral densitometry was performed using the [employer] System. Bone mineral density as measured about the Lumbar spine is: ----- L1-L4(G/cm2): 1.151 T Score Values are as follows: ----- L1: -2.4 ----- L2: -1.1 ----- L3: 0.4 ----- L4: 1.7 ----- L1-L4: -0.2 Z Score Values are as follows: ----- L1: -0.2 ----- L2: 1.0 ----- L3: 2.5 ----- L4: 3.8 ----- L1-L4: 1.9 Bone mineral density has: increased 2.1 % since study of: 04.16.2020 Bone mineral density about the R hip (g/cm2): 0.718 Bone mineral density about the L hip (g/cm2): 0.723 T Score values are as follows: -----R Neck: -2.4 -----L Neck: -2.7 -----R Total: -2.3 -----L Total: -2.3 Z Score values are as follows: -----R Neck: -0.1 -----L Neck: -0.5 -----R Total: -0.2 -----L Total: -0.1 Bone mineral density has: decreased -6.1 % since study of: 04.17.2020 FRAX%s: The graph provided illustrates a 29.2% chance for a major osteoporotic fx and a 14.8% chance for the hips probability for fx in 10 years time. IMPRESSION: Osteoporosis (T Score less than -2.5). There is increased fracture risk and therapy is usually indicated based on age. Re-Screen 1-2 years. NOTE: T-SCORE=SD OF THE YOUNG ADULT MEAN.
--- NOTE | 2023-07-13 14:12 | MM ---
Reason for Exam: Screening (asymptomatic). Last screening mammogram was performed 12 month(s) ago. Patient History: Menarche at age 13. First Full-Term at age 21. Left ovary removed at age 48. Right ovary removed at age 48. Hysterectomy at age 48. Postmenopausal. Other cancer, age 48. Estrogen, ending at age 49. Progesterone, ending at age 49. 10/23/1999, Benign Stereotactic Core Biopsy on the right side. Risk Values: Nadege 5 year model risk: 1.8%. NCI Lifetime model risk: 3.5%. Prior Study Comparison: 04/16/2020 Bilateral Screening Mammogram, [facility]. 06/17/2021 Bilateral Screening Mammogram, [facility]. 06/18/2022 Bilateral MG 3D screening mammo w/cad, [facility]. Tissue Density: There are scattered fibroglandular densities. Findings: Analyzed By CAD. There is no suspicious group of microcalcifications or new suspicious mass. Overall Assessment: Negative, BI-RAD 1 Management: Screening Mammogram of both breasts in [address] [facility] will attempt to contact patient to return for supplemental views and ultrasound if indicated. Patient should continue monthly self-breast exams. A clinical breast exam by your physician is recommended on an annual basis. This exam should not preclude additional follow-up of suspicious palpable abnormalities. Note on Nadege scores and lifetime risk: 1. A Nadege score greater than 3% is considered moderate risk. If this is the case, consider specialist referral to assess eligibility for a risk reducing agent. 2. If overall lifetime risk for the development of breast cancer is 20% or higher, the patient may qualify for future screening with alternating mammogram and breast MRI. Electronically signed and approved by: Abhinav Dixon DO
== END | disposition home or self-care (01) ==
LOC: RADMAMWWP 12:32
PROVIDERS: ATTEND Family Medicine
DX: Z12.31 Encounter for screening mammogram for malignant neoplasm of breast (principal); M81.0 Age-related osteoporosis without current pathological fracture; M85.89 Other specified disorders of bone density and structure, multiple sites; Z78.0 Asymptomatic menopausal state
CPT/HCPCS: 77063; 77067; 77080

== ENCOUNTER → 2024-02-28 | Outpatient (CLI) | payer MEDICARE ==
--- NOTE | 2024-02-28 14:22 | US ---
EXAMINATION TYPE: US thyroid st tissue head/neck DATE OF EXAM: 02/28/2024 COMPARISON: 03/15/2023 CLINICAL INDICATION: Female, 78 years old with history of E04.2 NONTOXIC MULTINODULAR GOITER; F/U TECHNIQUE: Grayscale and color Doppler imaging of the thyroid gland. FINDINGS: GLAND SIZE: Right Lobe: 4.5x2.7x1.8 cm Overall Parenchyma: homogeneous Left Lobe: 4.3x1.7x2.4 cm Overall Parenchyma: homogeneous Isthmus Thickness: 0.3 cm NODULES RIGHT: # of nodules measured on right: 2 1. 1.1 X 0.8 x 0.9 cm, upper lateral, mixed cystic and solid, isoechoic nodule, which is wider than tall, with smooth margins, without echogenic foci. TR 2 Prior size: x x cm 2. 1.6. X 1.4 x 1.3 cm, lower mid, mixed cystic and solid, isoechoic nodule, which is taller than w selam, with smooth margins, without echogenic foci. TR 4 Prior size: 1.3 x 1.4 x 1.4 cm LEFT: # of nodules measured on left: 2 1. 1.5 X 1.1 x 1.3 cm, upper mid, solid or almost completely solid, hyperechoic nodule, which is wi brigido than tall, with smooth margins, without echogenic foci. TR 3 2. 1.6 X 1.3 x 1.4 cm, lower mid, mixed cystic and solid, isoechoic nodule, which is wider than ta ll, with smooth margins, without echogenic foci. TR 3 Prior size: 1.9 x 1.5 x 1.7 cm ISTHMUS: # of nodules measured in the isthmus: 0 Bilateral neck scanned, no evidence of lymphadenopathy. IMPRESSION: 1. Interval increase in size of right mid to lower thyroid TR 4 nodule now measuring 1.6 versus 1.4 c m. FNA biopsy recommended. 2. One additional new bilateral thyroid nodule for which continued surveillance recommended according to ACR guidelines. 3. Remaining nodules are stable compared to the prior exam. Continued surveillance recommended accord ing to ACR guidelines. 4. Incidental note made of atherosclerotic changes of the carotid bifurcations correlate with ultraso und as clinically warranted. 2017 ACR TI-RADS LEVEL: TR-RADS 4 - Moderately Suspicious: Follow if > 1 cm, FNA if > 1.5 cm *Highest TI-RADS level nodule reported [email or web address] [facility], , 02/28/2024 2:19 PM
== END | disposition home or self-care (01) ==
LOC: RADUSWWP 13:27
PROVIDERS: ATTEND Otolaryngology
DX: E04.2 Nontoxic multinodular goiter (principal)
CPT/HCPCS: 76536

== ENCOUNTER → 2024-09-14 | Outpatient (CLI) | payer MEDICARE ==
--- NOTE | 2024-09-14 14:21 | MM ---
Reason for Exam: Screening (asymptomatic). Last mammogram was performed 1 year(s) and 3 month(s) ago. Patient History: Menarche at age 13. First Full-Term at age 21. Left ovary removed at age 48. Right ovary removed at age 48. Hysterectomy at age 48. Postmenopausal. Other cancer, age 48. Estrogen, ending at age 49. Progesterone, ending at age 49. 10/23/1999, Benign Stereotactic Core Biopsy on the right side. Risk Values: Nadege 5 year model risk: 1.8%. NCI Lifetime model risk: 3.3%. Prior Study Comparison: 06/17/2021 Bilateral Screening Mammogram, [facility]. 06/18/2022 Bilateral MG 3D screening mammo w/cad, [facility]. 07/12/2023 Bilateral MG 3D screening mammo w/cad, [facility]. Tissue Density: There are scattered areas of fibroglandular density. Findings: Analyzed By CAD. Mammotome biopsy clip in the right breast is redemonstrated. Benign-appearing vascular calcification posteriorly in the right breast is now seen. There is no suspicious group of microcalcifications or new suspicious mass in either breast. Overall Assessment: Benign, BI-RAD 2 Management: Screening Mammogram of both breasts in 1 year. . Patient should continue monthly self-breast exams. A clinical breast exam by your physician is recommended on an annual basis. This exam should not preclude additional follow-up of suspicious palpable abnormalities. Note on Nadege scores and lifetime risk: 1. A Nadege score greater than 3% is considered moderate risk. If this is the case, consider specialist referral to assess eligibility for a risk reducing agent. 2. If overall lifetime risk for the development of breast cancer is 20% or higher, the patient may qualify for future screening with alternating mammogram and breast MRI. [facility], , 09/14/2024 2:19 PM. Electronically signed and approved by: Guillermo Cardona M.D.
== END | disposition home or self-care (01) ==
LOC: RADMAMWWP 13:09
PROVIDERS: ATTEND Family Medicine
DX: Z12.31 Encounter for screening mammogram for malignant neoplasm of breast (principal); R92.323 Mammographic fibroglandular density, bilateral breasts; Z78.0 Asymptomatic menopausal state
CPT/HCPCS: 77063; 77067